=== PATIENT | female | born 1995 | race Caucasian/White ===

== ENCOUNTER 2019-11-06 11:49 | Emergency (ER) | payer MEDICAID ==
[~2019-11-06] VITALS: Ht 160 cm; Wt 109.1 kg
[2019-11-06 11:58] VITALS: Ht 160 cm; Wt 109.1 kg
[2019-11-06] MEDS ORDERED: SUMATRIPTAN SUC25 MG (11:59)
[2019-11-06] MEDS ORDERED: AMITRIPTYLINE100 MG (11:59)
[2019-11-06 13:29] LABS: BASOPHILS 0.3 % (0-2); EOSINOPHILS 2.4 % (0-7); HEMATOCRIT 44.2 % (36.0-48.0); HEMOGLOBIN 14.2 g/dL (12-16); IMMATURE GRANULOCYTES 0.2 % (0-5); LYMPHOCYTES 31.3 % (15-50); MCH 27.6 pg (26.0-34.0); MCHC 32.1 g/dL (31.0-37.0); MEAN PLATELET VOLUME 9.3 fL (7.4-10.4); NEUTROPHILS 59.8 % (40-80); PLATELET COUNT 332 10x3/uL (130-400); RBC 5.14 10x6/uL (4.00-5.40); RDW 13.4 % (11.5-14.5); WBC 10.2 10x3/uL (4.8-10.8)
[2019-11-06 13:36] LABS: CALC OSMOLALITY 271 mosm/kg (275-300); CARBON DIOXIDE 28.3 mmol/L (21.0-32.0); CHLORIDE - SERUM 102 mmol/L (98-107); CREATININE - SERUM 0.8 mg/dL (0.6-1.3); GLUCOSE 80 mg/dL (74-106); POTASSIUM - SERUM 4.1 mmol/L (3.5-5.1); SODIUM 137 mmol/L (136-145); UREA NITROGEN 10 mg/dL (7-18); eGFR NON AFRICAN AMERICAN > 90 mL/min (90-120)
[2019-11-06 13:42] LABS: ALBUMIN 3.7 g/dL (3.4-5.0); ALKALINE PHOSPHATASE 81 U/L (30-120); ALT (SGPT) 34 U/L (10-68); AMYLASE - SERUM 55 U/L (25-115); BILIRUBIN - TOTAL 0.21 mg/dL (0.2-1.3); LIPASE 110 U/L (73-393)
[2019-11-06 13:52] LABS: BILIRUBIN NEGATIVE (NEGATIVE); EPITHELIAL CELLS 0-5 /hpf (0-5); GLUCOSE NEGATIVE (NEGATIVE); KETONE NEGATIVE (NEGATIVE); NITRITE NEGATIVE (NEGATIVE); RED CELLS - URINE OCC /hpf (0-5); UROBILINOGEN NORMAL (NORMAL); WHITE CELLS - URINE 0-5 /hpf (NEGATIVE)
[2019-11-06 13:53] LABS: BACTERIA FEW /hpf (NEGATIVE)
[2019-11-06 15:39] VITALS: BP 122/65
== END 2019-11-06 18:06 | disposition home or self-care (01) ==
LOC: D.ER 11:49
PROVIDERS: Family Medicine
DX: R10.9 Unspecified abdominal pain (principal); N93.0 Postcoital and contact bleeding; R11.0 Nausea; K21.9 Gastro-esophageal reflux disease without esophagitis

== ENCOUNTER 2020-02-02 01:00 | Emergency (ER) | payer MEDICAID ==
[~2020-02-02 01:00] MED LIST: AMITRIPTYLINE100 MG; SUMATRIPTAN SUC25 MG
[2020-02-02 01:05] VITALS: Ht 160 cm
[2020-02-02] MEDS ORDERED: VALTREX1000 MG PO (01:51)
[2020-02-02] MEDS ORDERED: HYDROCODON-ACE1 EA10 PO (01:51)
[2020-02-02 02:07] VITALS: BP 136/92
== END 2020-02-02 02:08 | disposition home or self-care (01) ==
LOC: D.ER 01:00
DX: A60.9 Anogenital herpesviral infection, unspecified (principal)